=== PATIENT | female | born 1985 | race Caucasian/White ===

== ENCOUNTER 2016-09-08 09:15 | Emergency (ER) | payer MEDICAID ==
[~2016-09-08] VITALS: Ht 165.1 cm; Wt 110.7 kg
[2016-09-08 11:44] VITALS: BP 116/59
== END 2016-09-08 11:44 | disposition home or self-care (01) ==
LOC: ED 09:15
DX: R51 Headache (principal)
CPT/HCPCS: J1885; J2765; J3030